=== PATIENT | male | born 1970 | race Hispanic/Latino ===

== ENCOUNTER 2021-07-11 08:49 | Outpatient (CLI) | payer BC ==
[2021-07-11 21:47] LABS: SARS-CoV-2 PCR by NAA Not Detected (NotDetected)
== END 2021-07-11 08:50 | disposition home or self-care (01) ==
LOC: CSHLAB 08:49
PROVIDERS: ATTEND Internal Medicine Gastroenterology
DX: Z20.822 Contact with and (suspected) exposure to COVID-19 (principal); Z12.11 Encounter for screening for malignant neoplasm of colon
CPT/HCPCS: U0003; U0005

== ENCOUNTER 2021-07-13 06:38 | Day surgery (SDC) | payer BC ==
[2021-07-07 13:44] VITALS: BMI 39.0
[2021-07-13] MEDS ORDERED: Lidocaine 1% MPF 2 ML VIAL ONE (06:45)
[2021-07-13] MEDS ORDERED: PROPOFOL 20 ML ONE ×3 (08:08→08:32)
[2021-07-13] MEDS ORDERED: Lidocaine 2% PF 100 mg/5 ml Syringe ONE (08:11)
== END 2021-07-13 10:00 | disposition home or self-care (01) ==
LOC: CSHSDC 06:38
PROVIDERS: ATTEND Internal Medicine Gastroenterology
PROC: 0DJD8ZZ Inspection of Lower Intestinal Tract, Via Natural or Artificial Opening Endoscopic (ICD-10-PCS; principal; 2021-07-13)
DX: Z12.11 Encounter for screening for malignant neoplasm of colon (principal); K57.30 Diverticulosis of large intestine without perforation or abscess without bleeding; K64.9 Unspecified hemorrhoids
CPT/HCPCS: J2001; J2704